=== PATIENT | female | born 1985 | race Caucasian/White ===

== ENCOUNTER 2016-07-23 20:56 | Emergency (ER) | payer MEDICAID | END 2016-07-23 22:42 | disposition home or self-care (01) | DX: M25.511 Pain in right shoulder (principal); R03.0 Elevated blood-pressure reading, without diagnosis of hypertension; F17.200 Nicotine dependence, unspecified, uncomplicated ==

== ENCOUNTER 2016-08-28 12:51 | Emergency (ER) | payer MEDICAID ==
[2016-08-28 12:56] VITALS: BP 128/83
--- NOTE | 2016-08-28 13:30 | ED Physician Documentation ---
PD HPI HEENT - Stated complaint Stated Complaint: TOOTH PAIN - Chief complaint Chief Complaint: Heent - History obtained from History obtained from: Patient - History of Present Illness Timing - onset: Other (Increasing pain from a right maxillary posterior molar for the last couple of days with mild facial swelling. 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 - Present Medications Home Medications: Ambulatory Orders Medication Instructions Recorded Confirmed Escitalopram [Lexapro] 10 mg PO DAILY 07/27/14 08/28/16 Clindamycin [Cleocin] 300 mg PO Q6H 10 Days 08/28/16 HYDROcod/ACETAM 5/325 [[place] 5/325] 1 - 2 ea PO Q6H PRN #15 tablet 08/28/16 - Allergies Allergies/Adverse Reactions: Allergies Allergy/AdvReac Type Severity Reaction Status Date / Time influenza virus vaccine, Allergy Hives Verified 08/28/16 12:54 specific [influenza virus vacc,specific] - Social History Does the pt smoke?: Yes Smoking Status: Current every day smoker Does the pt drink ETOH?: No Does the pt have substance abuse?: No - Immunizations Immunizations are current?: Yes - POLST Patient has POLST: No PD ED PE NORMAL - Vitals Vital signs reviewed: Yes - General General: Alert and oriented X 3, No acute distress - HEENT HEENT: Other (Large cavity on the lateral surface of the last maxillary right molar with mild tenderness and very mild facial swelling on that side without palpable abscess, or trismus.) - Neuro Neuro: Alert and oriented X 3, Normal speech - Psych Psych: Normal mood, Normal affect Results - Vitals Vitals: Vital Signs - 24 hr 08/28/16 12:53 Temperature 36 C L Heart Rate 68 Respiratory 16 Rate Blood Pressure 128/83 H O2 Saturation 97 Oxygen O2 Source Room air PD MEDICAL DECISION MAKING - ED course ED course: The online [employer] prescription monitoring program was queried with regard to this patient. No concerning findings were found. Departure - Departure Disposition: ED Transfer to [facility] Clinical Impression: Dental abscess Condition: Good Record reviewed to determine appropriate education?: Yes Instructions: ED Dental Abscess Facial Cellulitis Prescriptions: Clindamycin [Cleocin] 300 mg PO Q6H 10 Days HYDROcod/ACETAM 5/325 [[place] 5/325] 1 - 2 ea PO Q6H PRN #15 tablet PRN Reason: Pain Comments: It is very important that you follow up with a dentist. When it comes to dental problems like yours the emergency department can only offer you a short-term solution to your long-term problem. A couple of options for low-cost dental care include: [facility] in [place] call [phone] for an appointment Or [facility] in [place], call [phone] for an appointment Your blood pressure was elevated today on check in to the emergency department. This does not mean that you have hypertension, it is a common phenomenon to check into the emergency department and have elevated blood pressure. I recommend that you see your primary care physician within the week to have it rechecked when you're feeling better. Do not drink or drive while on narcotic pain medicine. Note that many narcotic pain relievers also contain tylenol/acetaminophen. Please ensure that your total dose of acetaminophen from all sources does not exceed 3 grams (3000mg) per day. You may constipated on this medication, take a stool softener such as "Colace" twice a day while you are on it. Also recommend a [id number] laxative such as senna or MiraLAX any day that you do not have a bowel movement. If you received narcotic pain medication in the emergency department, do not drive or operate machinery for the next 24 hours.
== END 2016-08-28 13:36 | disposition home or self-care (01) ==
LOC: ED 12:51
DX: K04.7 Periapical abscess without sinus (principal); R03.0 Elevated blood-pressure reading, without diagnosis of hypertension; J45.909 Unspecified asthma, uncomplicated; F17.200 Nicotine dependence, unspecified, uncomplicated
CPT/HCPCS: 99283

== ENCOUNTER 2016-10-30 16:10 | Emergency (ER) | payer MEDICAID ==
[2016-10-30 16:26] VITALS: BP 139/91
[2016-10-30] MEDS ORDERED: HYDROcod/ACET 5/325 Prepack 6 PO STA (17:44)
[2016-10-30] MEDS ORDERED: CYCLOBENZAPRINE 10 MG Prepack 2 PO PRN (17:44)
--- NOTE | 2016-10-30 17:46 | ED Physician Documentation ---
PD HPI UPPER EXT INJURY - Stated complaint Stated Complaint: R SHOULDER PX - Chief complaint Chief Complaint: Ext Problem - History obtained from History obtained from: Patient - History of Present Illness Location: Right (Recurrent right shoulder pain, previously diagnosed as impingement syndrome. She says she has had negative x-rays in the past. It has been worse over the last week with popping over the AC joint and anterior shoulder pain when she abducts. No new injury.) Review of Systems Constitutional: reports: Reviewed and negative. 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 - Present Medications Home Medications: Ambulatory Orders Medication Instructions Recorded Confirmed Escitalopram [Lexapro] 10 mg PO DAILY 07/27/14 10/30/16 Cyclobenzaprine [Flexeril] 10 mg PO TID PRN 10/30/16 10/30/16 Cyclobenzaprine [Flexeril] 10 mg PO TID PRN #20 tablet 10/30/16 Gabapentin 300 mg PO BID 10/30/16 10/30/16 HYDROcod/ACETAM 5/325 [[place] 5/325] 1 - 2 ea PO Q6H PRN #15 tablet 10/30/16 - Allergies Allergies/Adverse Reactions: Allergies Allergy/AdvReac Type Severity Reaction Status Date / Time influenza virus vaccine, Allergy Hives Verified 10/30/16 17:07 specific [influenza virus vacc,specific] - Social History Does the pt smoke?: Yes Smoking Status: Current every day smoker Does the pt drink ETOH?: No Does the pt have substance abuse?: No - Immunizations Immunizations are current?: Yes - POLST Patient has POLST: No PD ED PE NORMAL - Vitals Vital signs reviewed: Yes - General General: Alert and oriented X 3, No acute distress - Extremities Extremities: Other (Tender to palpation over the AC joint. Painless internal and external rotation on the right. She can abduct to about 90 but then has pain especially actively. Positive supraspinatus testing.) - Neuro Neuro: Alert and oriented X 3, Normal speech - Psych Psych: Normal mood, Normal affect Results - Vitals Vitals: Vital Signs - 24 hr 10/30/16 16:24 Temperature 36.2 C L Heart Rate 97 Respiratory 16 Rate Blood Pressure 139/91 H O2 Saturation 98 Oxygen O2 Source Room air PD MEDICAL DECISION MAKING - ED course ED course: The [place] prescription monitoring program was queried with regard to this patient. No concerning findings were found. Departure - Departure Disposition: 01 Home, Self Care Clinical Impression: Shoulder pain, right Qualifiers: Chronicity: chronic Qualified Code(s): M25.511 - Pain in right shoulder; G89.29 - Other chronic pain Condition: Good Record reviewed to determine appropriate education?: Yes Instructions: ED Torn Rotator Cuff Prescriptions: Cyclobenzaprine [Flexeril] 10 mg PO TID PRN #20 tablet PRN Reason: Pain HYDROcod/ACETAM 5/325 [[place] 5/325] 1 - 2 ea PO Q6H PRN #15 tablet PRN Reason: Pain Comments: Your blood pressure was elevated today on check into the emergency department. This does not mean that you have hypertension, it is a common phenomenon to come to the emergency department and have elevated blood pressure. I recommend that she see her primary care physician within the week to have it rechecked when you are feeling better. Do not drink or drive while taking narcotic pain medication. Note that many narcotic pain relievers also contain Tylenol/acetaminophen. Please ensure that your total dose of acetaminophen from all sources does not exceed 3 g (3000 mg) per day. You may get constipated while on this medication. Take a stool softener such as Colace twice a day while you are on it. Also add an [id number]-egcbafy laxative such as senna or MiraLAX on any day that you do not have a bowel movement. If you received a narcotic pain medication or sedative while in the emergency department, do not drive for the next 24 hours.
[2016-10-30] MEDS ORDERED: CYCLOBENZAPRINE 10 MG Prepack 2 PO ONE (17:47)
[2016-10-30] MEDS ORDERED: HYDROcod/ACET 5/325 Prepack 6 PO ONE (17:47)
== END 2016-10-30 18:10 | disposition home or self-care (01) ==
LOC: ED 16:10
DX: M25.511 Pain in right shoulder (principal); G89.29 Other chronic pain; R03.0 Elevated blood-pressure reading, without diagnosis of hypertension; F17.200 Nicotine dependence, unspecified, uncomplicated
CPT/HCPCS: 99283

== ENCOUNTER 2016-11-24 17:26 | Emergency (ER) | payer MEDICAID ==
[2016-11-24] MEDS ORDERED: LIDOCAINE PATCH 5% TOP STA (18:24)
--- NOTE | 2016-11-24 18:29 | ED Physician Documentation ---
History of Present Illness - Stated complaint Stated Complaint: BACK PX/SPASM - Chief complaint Chief Complaint: Back Pain - Additonal information Additional information: hx from pt 31 f chronic back pain seen PMD at [facility] many many times for same has had MRI showing foraminal narrowing L45 and L5S1 sees a pain clinic too - on tramadol, gabapentin and flexeril has not gotten her flexeril refill this week despite many calls dennis is severe - right lower back and left leg intermittently and fairly diffusely no IVDA no fever no numbness or incontin denies preg does not want to go to pain clinic any more next PMD appt 12/20 so to ER for meds Review of Systems Constitutional: denies: Fever Cardiac: denies: Chest pain / pressure Respiratory: denies: Dyspnea, Cough GI: denies: Abdominal Pain : denies: Incontinent, Now EGA Musculoskeletal: reports: Back pain Neurologic: denies: Focal weakness, Numbness Endocrine: denies: Easy bruising / bleeding Immunocompromised: denies: Immunocompromised PD PAST MEDICAL HISTORY - Past Medical History Respiratory: Asthma Psych: Depression, Anxiety Musculoskeletal: Chronic back pain - Past Surgical History Past Surgical History: Yes 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 - Present Medications Home Medications: Ambulatory Orders Medication Instructions Recorded Confirmed Escitalopram [Lexapro] 10 mg PO DAILY 07/27/14 11/24/16 Cyclobenzaprine [Flexeril] 10 mg PO TID PRN 10/30/16 11/24/16 Gabapentin 1,500 mg PO DAILY 10/30/16 11/24/16 Carisoprodol [Soma] 350 mg PO Q8H PRN #15 tablet 11/24/16 Lidocaine Patch 5% [Lidoderm Patch] 1 each TOP DAILY PRN #10 patch 11/24/16 traMADol [Ultram] 50 mg PO DAILY 11/24/16 11/24/16 - Allergies Allergies/Adverse Reactions: Allergies Allergy/AdvReac Type Severity Reaction Status Date / Time influenza virus vaccine, Allergy Hives Verified 10/30/16 17:07 specific [influenza virus vacc,specific] - Social History Does the pt smoke?: Yes Smoking Status: Current every day smoker Does the pt drink ETOH?: No Does the pt have substance abuse?: No - Immunizations Immunizations are current?: Yes - POLST Patient has POLST: No PD ED PE NORMAL - Vitals Vital signs reviewed: Yes - General General: Alert and oriented X 3 - Neck Neck: Supple, no meningeal sign - Cardiac Cardiac: RRR - Respiratory Respiratory: No respiratory distress - Abdomen Abdomen: Soft, Non tender - Back Back: No spinal TTP, Other (right ST lumbar region TTP) - Derm Derm: Normal color - Extremities Extremities: No deformity, Normal ROM s pain - Neuro Neuro: No motor deficit, No sensory deficit, Other (hip flex knee ext foot dorsi plantar and great toe ect 5/5, neg SLR, no clonus, patellar DTR 1+/4 shruthi, denies saddle anesthesia) Results - Vitals Vitals: Vital Signs - 24 hr 11/24/16 17:38 Temperature 36.4 C L Heart Rate 91 Respiratory 18 Rate Blood Pressure 128/64 O2 Saturation 100 Oxygen O2 Source Room air PD MEDICAL DECISION MAKING - ED course ED course: acute exacerbation chronic back pain no red flags would not rec flexeril as it interacts with tramadl but will rx some and lido patches Departure - Departure Disposition: 01 Home, Self Care Clinical Impression: Back pain Qualifiers: Back pain location: low back pain Chronicity: acute Back pain laterality: right Sciatica presence: unspecified whether sciatica present Qualified Code(s) : M54.5 - Low back pain Condition: Good Instructions: ED Neck Back Pain General Follow-Up: Dilcia Arnold MD [Primary Care Provider] - Prescriptions: Lidocaine Patch 5% [Lidoderm Patch] 1 each TOP DAILY PRN #10 patch PRN Reason: Pain Carisoprodol [Soma] 350 mg PO Q8H PRN #15 tablet PRN Reason: muscle spasm Comments: Try the soma muscle relaxant instead of flexeril Add the lidocaine patches (may be worn up to 12 hr a day) Continue your tramadol and gabapentin Follow up PMD as scheduled Return if worse Forms: Activity restrictions
[2016-11-24] MEDS ORDERED: LIDOCAINE PATCH 5% TOP ONE (18:57)
[2016-11-24 19:09] VITALS: BP 126/86
== END 2016-11-24 19:08 | disposition home or self-care (01) ==
LOC: ED 17:26
DX: M54.5 Low back pain (principal); F17.200 Nicotine dependence, unspecified, uncomplicated
CPT/HCPCS: 99282; 99283; A9270

== ENCOUNTER 2017-01-26 18:08 | Emergency (ER) | payer MEDICAID ==
[2017-01-26 18:17] VITALS: BP 134/89
--- NOTE | 2017-01-26 18:26 | ED Physician Documentation ---
PD HPI URI - Stated complaint Stated Complaint: THROAT/EAR PX - Chief complaint Chief Complaint: Heent - History obtained from History obtained from: Patient - History of Present Illness Timing - onset: Other (1-1/2 weeks of waxing and waning right-sided sore throat , eye drainage, and ear pain, always on the right. She does have a cough but it is nonproductive. No fevers. No visual deficit or possibility of .) Review of Systems Ten Systems: 10 systems reviewed and negative Constitutional: denies: Fever, Chills Eyes: reports: Discharge, Irritation. 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 - Present Medications Home Medications: Ambulatory Orders Medication Instructions Recorded Confirmed Escitalopram [Lexapro] 10 mg PO DAILY 07/27/14 01/26/17 Cyclobenzaprine [Flexeril] 10 mg PO TID PRN 10/30/16 01/26/17 Gabapentin 1,500 mg PO DAILY 10/30/16 01/26/17 traMADol [Ultram] 50 mg PO DAILY 11/24/16 01/26/17 Guaifenesin/Pseudoephedrne HCl 1 each PO BID PRN #20 tab.er.12h 01/26/17 [Mucinex D ER 600-60 mg Tablet] HYDROcod/ACETAM 5/325 [[place] 5/325] 1 - 2 ea PO Q6H PRN #10 tablet 01/26/17 Mometasone Furoate [Nasonex] 1 spray NS BID #1 spray.pump 01/26/17 - Allergies Allergies/Adverse Reactions: Allergies Allergy/AdvReac Type Severity Reaction Status Date / Time influenza virus vaccine, Allergy Hives Verified 01/26/17 18:17 specific [influenza virus vacc,specific] - Social History Does the pt smoke?: Yes Smoking Status: Current every day smoker Does the pt drink ETOH?: No Does the pt have substance abuse?: No - Immunizations Immunizations are current?: Yes - POLST Patient has POLST: No PD ED PE NORMAL - Vitals Vital signs reviewed: Yes - General General: Alert and oriented X 3, No acute distress - HEENT HEENT: PERRL, EOMI, Other (Mild viral appearing conjunctivitis on the right, TMs are normal, oropharyngeal tonsillar pillars are mildly red but without exudates or tonsillar swelling, no anterior cervical adenopathy.) - Cardiac Cardiac: RRR, No murmur - Respiratory Respiratory: No respiratory distress, Clear bilaterally - Abdomen Abdomen: Non tender - Neuro Neuro: Alert and oriented X 3, Normal speech - Psych Psych: Normal mood, Normal affect Results - Vitals Vitals: Vital Signs - 24 hr 01/26/17 18:15 Temperature 36 C L Heart Rate 105 H Respiratory 20 Rate Blood Pressure 134/89 H O2 Saturation 100 Oxygen O2 Source Room air - Labs Labs: Laboratory Tests 01/26/17 18:28 Group A Strep Rapid Negative PD MEDICAL DECISION MAKING - ED course ED course: She has unilateral viral appearing conjunctivitis, pharyngitis, and ear pain without otitis, this is all very consistent with a viral syndrome, specifically adenovirus. Departure - Departure Disposition: Home, Self Care Clinical Impression: Viral URI Condition: Good Record reviewed to determine appropriate education?: Yes Instructions: ED Viral Syndrome Prescriptions: Guaifenesin/Pseudoephedrne HCl [Mucinex D ER 600-60 mg Tablet] 1 each PO BID PRN #20 tab.er.12h PRN Reason: congestion HYDROcod/ACETAM 5/325 [[place] 5/325] 1 - 2 ea PO Q6H PRN #10 tablet PRN Reason: Pain Mometasone Furoate [Nasonex] 1 spray NS BID #1 spray.pump Comments: Call your doctor to arrange a follow-up appointment, make the next available appointment. In the interim, return anytime if worse or if new symptoms develop. Your blood pressure was elevated today on check into the emergency department. This does not mean that you have hypertension, it is a common phenomenon to come to the emergency department and have elevated blood pressure. I recommend that she see your primary care physician within the week to have it rechecked when you are feeling better. Do not drink or drive while taking narcotic pain medication. Note that many narcotic pain relievers also contain Tylenol/acetaminophen. Please ensure that your total dose of acetaminophen from all sources does not exceed 3 g (3000 mg) per day. You may get constipated while on this medication. Take a stool softener such as Colace twice a day while you are on it. Also add an knyb-fsh-[id number] laxative such as senna or MiraLAX on any day that you do not have a bowel movement. If you received a narcotic pain medication or sedative while in the emergency department, do not drive for the next 24 hours.
[2017-01-26 18:43] LABS: RAPID STREP SCREEN REAGENT QC YELLOW (YELLOW)
== END 2017-01-26 18:56 | disposition home or self-care (01) ==
LOC: ED 18:08
DX: J06.9 Acute upper respiratory infection, unspecified (principal); B34.9 Viral infection, unspecified; R03.0 Elevated blood-pressure reading, without diagnosis of hypertension; F17.200 Nicotine dependence, unspecified, uncomplicated
CPT/HCPCS: 87070; 87430; 99283

== ENCOUNTER 2018-02-27 09:36 | Emergency (ER) | payer MEDICAID ==
[2018-02-27 09:55] VITALS: BP 147/82
--- NOTE | 2018-02-27 12:00 | ED Physician Documentation ---
PD HPI BACK PAIN - Stated complaint Stated Complaint: MED REFILL/THUMB PX - Chief complaint Chief Complaint: Back Pain - History obtained from History obtained from: Patient - History of Present Illness Timing - onset: Other (32-year-old woman with chronic back pain and also right trigger finger presents with chronic pain and her doctor is on vacation and unable to get a substitute for about 2 weeks and requesting a refill of tramadol and gabapentin. She has no acute complaints. 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 - Present Medications Home Medications: Ambulatory Orders Medication Instructions Recorded Confirmed Escitalopram [Lexapro] 10 mg PO DAILY 07/27/14 01/26/17 Cyclobenzaprine [Flexeril] 10 mg PO TID PRN 10/30/16 01/26/17 Gabapentin 1,500 mg PO DAILY 10/30/16 01/26/17 traMADol [Ultram] 50 mg PO DAILY 11/24/16 01/26/17 Cyclobenzaprine [Flexeril] 10 mg PO TID PRN #20 tablet 02/27/18 Tramadol HCl 50 mg PO Q6H PRN #20 tablet 02/27/18 - Allergies Allergies/Adverse Reactions: Allergies Allergy/AdvReac Type Severity Reaction Status Date / Time influenza virus vaccine, Allergy Hives Verified 02/27/18 09:55 specific [influenza virus vacc,specific] - Social History Does the pt smoke?: Yes Smoking Status: Current every day smoker Does the pt drink ETOH?: No Does the pt have substance abuse?: No - Immunizations Immunizations are current?: No Immunizations: TDAP >10years/unknown - POLST Patient has POLST: No PD ED PE NORMAL - Vitals Vital signs reviewed: Yes - General General: Alert and oriented X 3, No acute distress - Neuro Neuro: Alert and oriented X 3, Normal speech - Psych Psych: Normal mood, Normal affect Results - Vitals Vitals: Vital Signs - 24 hr 02/27/18 09:52 Temperature 36.2 C L Heart Rate 83 Respiratory 16 Rate Blood Pressure 147/82 H O2 Saturation 99 Oxygen O2 Source Room air Departure - Departure Disposition: 01 Home, Self Care Clinical Impression: Chronic back pain Qualifiers: Back pain location: low back pain Back pain laterality: unspecified Sciatica presence: without sciatica Qualified Code(s): M54.5 - Low back pain; G89.29 - Other chronic pain Condition: Good Record reviewed to determine appropriate education?: Yes Instructions: ED Chronic Pain Management Prescriptions: Cyclobenzaprine [Flexeril] 10 mg PO TID PRN #20 tablet PRN Reason: Spasms Tramadol HCl 50 mg PO Q6H PRN #20 tablet PRN Reason: Pain Comments: Call your doctor to arrange a follow-up appointment, make the next available appointment. In the interim, return anytime if worse or if new symptoms develop. Your blood pressure was elevated today on check into the emergency department. This does not mean that you have hypertension, it is a common phenomenon to come to the emergency department and have elevated blood pressure. I recommend that you see your primary care physician within the week to have it rechecked when you are feeling better.
== END 2018-02-27 12:08 | disposition home or self-care (01) ==
LOC: ED 09:36
DX: Z76.0 Encounter for issue of repeat prescription (principal); G89.29 Other chronic pain; M54.5 Low back pain; M65.30 Trigger finger, unspecified finger; F17.200 Nicotine dependence, unspecified, uncomplicated; R03.0 Elevated blood-pressure reading, without diagnosis of hypertension
CPT/HCPCS: 99283